=== PATIENT | female | born 2000 | race Caucasian/White ===

== ENCOUNTER → 2023-08-24 | Outpatient (CLI) | payer OTHER | LOC: COL.LAB 15:20 → COL.RAD 15:23 | DX: N92.0 Excessive and frequent menstruation with regular cycle (principal) ==

== ENCOUNTER 2023-10-06 12:34 | Emergency (ER) | payer OTHER ==
[~2023-10-06] VITALS: Ht 180.3 cm; Wt 88.6 kg
[2023-10-06 12:42] VITALS: BP 121/83
[2023-10-06] MEDS ORDERED: ZOFRAN ODT4 MG PO (13:15)
[2023-10-06 13:28] VITALS: PULSE 76; TEMP 98.2
== END 2023-10-06 13:30 | disposition home or self-care (01) ==
LOC: COL.ER 12:34
DX: R11.2 Nausea with vomiting, unspecified (principal); R19.7 Diarrhea, unspecified; Z20.822 Contact with and (suspected) exposure to COVID-19; Z28.310 Unvaccinated for COVID-19